=== PATIENT | female | born 2000 | race Caucasian/White ===

== ENCOUNTER 2019-09-12 12:31 | Emergency (ER) | payer BC ==
[2019-09-12 13:02] VITALS: BP 127/83
--- NOTE | 2019-09-12 13:33 | UC ---
FLU HPI - HPI Summary HPI Summary: 19 year old female with no PMH, on depo for BC presents with 2 days of body aches, chills, cough, tactile fever, nausea, sinus pressure, ear pressure. no shortness of breath, no neck stiffness, no vomiting. 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 - History of Current Complaint Chief Complaint: UCRespiratory Stated Complaint: FLU SYMPTOMS Time Seen by Provider: 09/12/19 13:32 Hx Obtained From: Patient Hx Last Menstrual Period: doesn't get them ?: No Onset/Duration: Sudden Onset, Lasting Days - 2 Severity Currently: Moderate Severity Initially: Moderate Pain Intensity: 5 Pain Scale Used: 0-10 Numeric Associated Signs & Symptoms: Positive: Fever - tactile, Myalgia, Cough, Sore Throat, Nasal Congestion, Headache. Negative: Vomiting, Diarrhea Related Hx: Possible Flu/Infectious Exposure - Allergy/Home Medications Allergies/Adverse Reactions: Allergies Allergy/AdvReac Type Severity Reaction Status Date / Time Sulfa (Sulfonamide Allergy Hives Verified 09/12/19 13:02 Antibiotics) Home Medications: Home Medications D-Methorphan/PE/Acetaminophen [Vicks Dayquil Cold & Flu] 2 cap PO Q6H 09/12/19 [ History Confirmed 09/12/19] Oseltamivir CAP* [Tamiflu CAP*] 75 mg PO BID #10 cap 09/12/19 [Rx] medroxyPROGESTERone ACETATE* [DEPO-Provera] 150 mg IM ONCE 09/12/19 [History Confirmed 09/12/19] PMH/Surg Hx/FS Hx/Imm Hx Previously Healthy: Yes - Surgical History Surgical History: None - Family History Known Family History: Positive: Non-Contributory - Social History Occupation: Employed Full-time - bleacher [employer] Alcohol Use: Occasionally Substance Use Type: None Smoking Status (MU): Never Smoked Tobacco Review of Systems All Other Systems Reviewed And Are Negative: Yes Constitutional: Positive: Fever, Chills, Fatigue ENT: Positive: Sore Throat, Ear Ache, Nasal Discharge, Sinus Congestion Respiratory: Positive: Cough. Negative: Shortness Of Breath Motor: Positive: Weakness Neurovascular: Positive: Negative Musculoskeletal: Positive: Myalgia Is Patient Immunocompromised?: No Physical Exam Triage Information Reviewed: Yes Appearance: No Pain Distress, Well-Nourished, Ill-Appearing - mild Vital Signs: Initial Vital Signs Temp 101.2 F 09/12/19 12:58 Pulse 101 09/12/19 12:58 Resp 16 09/12/19 12:58 BP 127/83 09/12/19 12:58 Pulse Ox 100 09/12/19 12:58 Vital Signs Reviewed: Yes Eyes: Positive: Conjunctiva Clear ENT: Positive: Pharynx normal, TMs normal, Sinus tenderness. Negative: Pharyngeal erythema, TM bulging, TM dull, TM red, Tonsillar swelling, Tonsillar exudate, Uvula midline Neck: Positive: Supple, Nontender, No Lymphadenopathy. Negative: Nuchal Rigidity, Enlarged Nodes @ Respiratory: Positive: Chest non-tender, Lungs clear, Normal breath sounds, No respiratory distress, No accessory muscle use. Negative: Crackles, Rhonchi, Stridor, Wheezing Cardiovascular: Positive: RRR, No Murmur Musculoskeletal Exam: Normal Neurological Exam: Normal Skin Exam: Normal Flu Course/Dx - Course Course Of Treatment: - Positive for Influenza B - Tamiflu to help decrease symptoms. - Motrin/ Tylenol as needed for fever, chills, pain - over the counter medications as needed for symptoms. - Work notes given - Increase fluid intake to prevent dehydration - Humidifier at night to help with coughing - Good Hygiene, hand washing to prevent spread - Differential Dx/Diagnosis Provider Diagnosis: Influenza B Discharge ED - Sign-Out/Discharge Documenting (check all that apply): Patient Departure All imaging exams completed and their final reports reviewed: No Studies - Discharge Plan Condition: Fair Disposition: HOME Prescriptions: Oseltamivir CAP* [Tamiflu CAP*] 75 mg PO BID #10 cap Patient Education Materials: Influenza (ED) Forms: *Work Release Referrals: Esau Mendoza MD [Primary Care Provider] - Additional Instructions: - Positive for Influenza B - Tamiflu to help decrease symptoms. - Motrin/ Tylenol as needed for fever, chills, pain - over the counter medications as needed for symptoms. - Work notes given - Increase fluid intake to prevent dehydration - Humidifier at night to help with coughing - Good Hygiene, hand washing to prevent spread - Billing Disposition and Condition Condition: FAIR Disposition: Home
[2019-09-12 13:34] LABS: Influenza B Molecular POSITIVE (Negative)
== END 2019-09-12 14:02 | disposition home or self-care (01) ==
LOC: UCEAST 12:31
DX: J10.1 Influenza due to other identified influenza virus with other respiratory manifestations (principal); Z88.2 Allergy status to sulfonamides
CPT/HCPCS: 99202; G0463